=== PATIENT | female | born 1995 | race African-American/Black ===

== ENCOUNTER 2019-06-17 10:31 | Emergency (ER) | payer MEDICAID, OTHER ==
[~2019-06-17] VITALS: Ht 162.6 cm; Wt 61.2 kg
[2019-06-17 11:12] VITALS: BP 118/87
[2019-06-17 11:58] LABS: Urine Bacteria NONE SEEN /hpf (None Seen); Urine Blood Negative /uL (Negative); Urine Hyaline Cast FEW /lpf (0 - 2); Urine Mucus FEW (None Seen); Urine WBC 4 /hpf (0 - 5)
== END 2019-06-17 12:57 | disposition home or self-care (01) ==
LOC: ER 10:32
DX: N39.0 Urinary tract infection, site not specified (principal)
CPT/HCPCS: 81001; 81025; 87210

== ENCOUNTER 2020-12-08 13:39 | Observation (INO) | payer MEDICAID ==
[~2020-12-08] VITALS: Ht 162.6 cm; Wt 68.0 kg
[2020-12-08 14:17] LABS: Basophils # (auto) 0 10 ^3/uL (0-0.2); Basophils % (auto) 0.4 % (0.0-2.0); Eosinophils # (auto) 0.1 10 ^3/uL (0-0.8); Eosinophils % (auto) 1.5 % (0.0-7.0); Hematocrit 34.6 % (36.0-46.0); Hemoglobin 11.5 g/dL (12.2-16.2); Lymphocytes # (auto) 1.5 10 ^3/uL (0.4-5.4); Lymphocytes % (auto) 17.4 % (10.0-50.0); Mean Corpuscular Hemoglobin 27.2 pg (28.0-32.0); Mean Corpuscular Hgb Conc. 33.3 g/dL (32.0-36.0); Mean Corpuscular Volume 81.6 fL (80.0-100.0); Monocytes # (auto) 0.6 10 ^3/uL (0-1.3); Monocytes % (auto) 7.4 % (0.0-12.0); Neutrophils # (auto) 6.4 10 ^3/uL (1.6-8.6); Neutrophils % (auto) 73.3 % (37.0-80.0); Nucleated Red Blood Cells % 0.1 %; Red Blood Cells 4.24 10^6/uL (4.0-5.20); Red Cell Distribution Width 12.6 % (11.8-14.3); White Blood Cell 8.7 10^3/uL (4.4-10.8)
[2020-12-08 14:26] LABS: Albumin 2.6 g/dL (3.4-5.0); Calcium 7.9 mg/dL (8.5-10.1); Potassium 3.7 mmol/L (3.5-5.1)
[2020-12-08] MEDS ORDERED: SODIUM CHLORIDE 0.9% 1,000 ML IV ONE (14:30)
[2020-12-08 14:31] LABS: Bilirubin, Total 0.2 mg/dL (0.2-1.0); Total Protein 6.2 g/dL (6.4-8.2)
[2020-12-08 16:00] VITALS: BP 103/58
[2020-12-08] MEDS ORDERED: PREN1TAB71 OR (17:44)
[2020-12-08] MEDS ORDERED: LACTATED RINGER'S 1,000 ML IV ONE (18:15)
== END 2020-12-08 20:40 | disposition home or self-care (01) ==
LOC: ER 13:39 → LDRP 16:20
PROVIDERS: ADMIT Specialist; ATTEND Specialist
DX: O99.413 Diseases of the circulatory system complicating pregnancy, third trimester (principal); O99.013 Anemia complicating pregnancy, third trimester; O99.113 Other diseases of the blood and blood-forming organs and certain disorders involving the immune mechanism complicating pregnancy, third trimester; D84.9 Immunodeficiency, unspecified; Z3A.30 30 weeks gestation of pregnancy
CPT/HCPCS: 36415; 59025; 80053; 81002; 84484; 85025; 96360; 96361; 99284; G0378; 93005

== ENCOUNTER 2021-03-16 13:53 | Observation (INO) | payer MEDICAID ==
[~2021-03-16 13:53] MED LIST: PREN1TAB71 OR
== END 2021-03-16 15:24 | disposition home or self-care (01) ==
LOC: LDRP 13:53
PROVIDERS: ADMIT Obstetrics & Gynecology; ATTEND Obstetrics & Gynecology
DX: O99.891 Other specified diseases and conditions complicating pregnancy (principal); M24.29 Disorder of ligament, other specified site; M79.89 Other specified soft tissue disorders; O62.9 Abnormality of forces of labor, unspecified; Z3A.38 38 weeks gestation of pregnancy
CPT/HCPCS: 59025; 81002; 94760; G0378

== ENCOUNTER 2021-03-30 13:20 | Observation (INO) | payer MEDICAID | END 2021-03-30 15:15 | disposition home or self-care (01) | LOC: LDRP 13:20 | PROVIDERS: ADMIT Specialist; ATTEND Specialist | DX: O48.0 Post-term pregnancy (principal); Z3A.40 40 weeks gestation of pregnancy | CPT/HCPCS: 59025; 76818; 81002; G0378 ==

== ENCOUNTER 2021-03-31 17:06 | Inpatient (IN) | payer MEDICAID ==
[~2021-03-31] VITALS: Ht 30.5 cm; Wt 0.5 kg
[2021-03-31] MEDS ORDERED: PHISODERM TOP SOLN 240ML BTL TOP PRN (19:30)
[2021-03-31] MEDS ORDERED: WITCH HAZEL-GLYCERIN PAD TOP PRN (19:30)
[2021-03-31] MEDS ORDERED: PROMETHAZINE HCL 25 MG/ML 1ML IM PRN (19:30)
[2021-03-31] MEDS ORDERED: DERMOPLAST 60ML BOTTLE TOP PRN (19:30)
[2021-03-31] MEDS ORDERED: LIDOCAINE 2%HCL (LOCAL ANESTH.) INJ 20ML MDV IJ PRN (19:30)
[2021-03-31] MEDS ORDERED: BUTORPHANOL TARTRATE 2 MG/1 ML VIAL IV PRN (19:30)
[2021-03-31 19:55] LABS: Basophils # (auto) 0 10 ^3/uL (0-0.2); Basophils % (auto) 0.4 % (0.0-2.0); Eosinophils # (auto) 0.1 10 ^3/uL (0-0.8); Eosinophils % (auto) 0.8 % (0.0-7.0); Hematocrit 36.1 % (36.0-46.0); Hemoglobin 12.6 g/dL (12.2-16.2); Lymphocytes # (auto) 2.6 10 ^3/uL (0.4-5.4); Lymphocytes % (auto) 26.3 % (10.0-50.0); Mean Corpuscular Hemoglobin 27.3 pg (28.0-32.0); Mean Corpuscular Hgb Conc. 34.8 g/dL (32.0-36.0); Mean Corpuscular Volume 78.5 fL (80.0-100.0); Monocytes # (auto) 1.2 10 ^3/uL (0-1.3); Monocytes % (auto) 11.8 % (0.0-12.0); Neutrophils # (auto) 6.1 10 ^3/uL (1.6-8.6); Neutrophils % (auto) 60.7 % (37.0-80.0); Platelet Count (auto) 203 10^3/uL (140-450); Red Blood Cells 4.59 10^6/uL (4.0-5.20); Red Cell Distribution Width 13.6 % (11.8-14.3)
[2021-03-31 20:11] LABS: INR 0.92 (0.9-1.15); Partial Thromboplastin Time 25.6 sec (23.0-31.2)
[2021-03-31 20:12] LABS: Albumin 2.8 g/dL (3.4-5.0); Calcium 8.2 mg/dL (8.5-10.1)
[2021-03-31 20:15] LABS: BUN/Creatinine Ratio 17.6; Bilirubin, Total 0.3 mg/dL (0.2-1.0); Total Protein 6.8 g/dL (6.4-8.2)
[2021-03-31 20:36] LABS: Alcohol, Urine < 3.0 mg/dL (0-10); Amphetamine Screen, Urine NEGATIVE (NEGATIVE); Barbiturate Scree,Urine NEGATIVE (NEGATIVE); Benzodiazephine Screen, Urine NEGATIVE (NEGATIVE); Cannabinoid Screen, Urine NEGATIVE (NEGATIVE); Cocaine Screen, Urine NEGATIVE (NEGATIVE); Opiate Scree,Urine NEGATIVE (NEGATIVE); Phencyclidine Screen, Urine NEGATIVE (NEGATIVE)
[2021-03-31 20:37] LABS: Urine Bacteria FEW /hpf (None Seen); Urine Blood 3+ /uL (Negative); Urine Mucus FEW (None Seen); Urine Specific Gravity 1.017 (1.001-1.035); Urine WBC 1 /hpf (0 - 5)
[2021-03-31] MEDS: LACTATED RINGER'S 1,000 ML IV SCH (20:41)
[2021-03-31] MEDS ORDERED: TERBUTALINE SULFATE 1 MG/ML 1ML VIAL SC ONE (21:15)
[2021-03-31] MEDS ORDERED: LACT. RINGERS/OXYTOCIN 20UNITS 500 ML IV ONE ×2 (21:15→21:45)
[2021-03-31] MEDS ORDERED: LACT. RINGERS/OXYTOCIN 20UNITS 1,000 ML IV SCH (21:15)
[2021-03-31] MEDS: miSOPROStol 50 MCG per PRE-CUT 1/2 TAB PO PRN (23:04)
[2021-04-01] MEDS: BUTORPHANOL TARTRATE 2 MG/1 ML VIAL IV PRN ×2 (02:38→05:33)
[2021-04-01] MEDS: miSOPROStol 50 MCG per PRE-CUT 1/2 TAB PO PRN (03:05)
[2021-04-01] MEDS: LACTATED RINGER'S 1,000 ML IV SCH ×2 (04:43→11:30)
[2021-04-01] MEDS ORDERED: NALOXONE HCL 0.4 MG/ML VIAL IV ONE ×2 (07:45→08:45)
[2021-04-01] MEDS ORDERED: LACTATED RINGER'S 1,000 ML IV ONE ×2 (07:45→08:45)
[2021-04-01] MEDS ORDERED: ROPIVACAINE HCL 200 ML EPI SCH ×2 (07:45→08:45)
[2021-04-01] MEDS ORDERED: LIDOCAINE HCL 2 %PF INJ 10ML AMP IJ ONE ×3 (07:45→08:45)
[2021-04-01] MEDS ORDERED: fentaNYL CITRATE 100 MCG/2 ML VL IV ONE ×2 (07:45→08:45)
[2021-04-01] MEDS ORDERED: ePHEDrine SULFATE 50 MG/ML AMP IV ONE (07:45)
[2021-04-01] MEDS ORDERED: ROPIVACAINE HCL 200 ML ONE (07:59)
[2021-04-01] MEDS ORDERED: ePHEDrine SULFATE 50 MG/ML AMP ONE (07:59)
[2021-04-01] MEDS ORDERED: fentaNYL CITRATE 100 MCG/2 ML VL ONE ×2 (07:59→13:21)
[2021-04-01] MEDS ORDERED: ceFAZolin 1GM/50ML 50 ML IV SCH (08:00)
[2021-04-01] MEDS ORDERED: IBUPROFEN 600 MG TAB PO PRN (15:45)
[2021-04-01] MEDS ORDERED: RHO (D) IMMUNE GLOBULIN 300 MCG INJ IM ONE (17:45)
[2021-04-01 19:07] VITALS: BP 118/67
[2021-04-01 22:50] VITALS: BP 118/76
[2021-04-02] VITALS (7 sets, daily range): BP systolic 100–110; BP diastolic 0–65
[2021-04-02] MEDS ORDERED: SIMETHICONE 80 MG CHEWABLE TABLET PO PRN (11:15)
[2021-04-03 04:06] LABS: RPR Non Reactive (Non Reactive)
== END 2021-04-02 17:50 | disposition home or self-care (01) | DRG 560 ==
LOC: LDRP 17:06 → OBSVTOIN 19:15 → LDRP 19:31
PROVIDERS: ADMIT Specialist; ATTEND Specialist
PROC: 10E0XZZ Delivery of Products of Conception, External Approach (ICD-10-PCS; principal; 2021-04-01)
PROC: 00HU33Z Insertion of Infusion Device into Spinal Canal, Percutaneous Approach (ICD-10-PCS; 2021-04-01)
PROC: 3E0R3BZ Introduction of Anesthetic Agent into Spinal Canal, Percutaneous Approach (ICD-10-PCS; 2021-04-01)
PROC: 0HQ9XZZ Repair Perineum Skin, External Approach (ICD-10-PCS; 2021-04-01)
PROC: 30233S1 Transfusion of Nonautologous Globulin into Peripheral Vein, Percutaneous Approach (ICD-10-PCS; 2021-04-02)
DX: O26.893 Other specified pregnancy related conditions, third trimester (principal); O69.81X0 Labor and delivery complicated by cord around neck, without compression, not applicable or unspecified; O70.0 First degree perineal laceration during delivery; Z20.822 Contact with and (suspected) exposure to COVID-19; Z37.0 Single live birth; Z3A.40 40 weeks gestation of pregnancy; Z67.11 Type A blood, Rh negative
CPT/HCPCS: 36415; 59025; 59409; 62282; 80053; 80307; 81001; 81002; 84112; 85025; 85049; 85610; 85730; 86592; 86850; 86900; 86901; 87426; 90384; 94760; 96360; 96361; 96372; 96374; 96375; G0378; J0690; J2590